=== PATIENT | female | born 1965 | race Caucasian/White ===

== ENCOUNTER 2018-05-17 15:41 | Inpatient (IN) ==
[2018-05-17] MEDS ORDERED: MethylPREDNISolone Sod Succinate Inj 125 MG/2 ML Vial IV.PUSH ONE (15:54)
[2018-05-17 16:11] LABS: Baso # (Auto) 0.1 th/mm3 (0.0-0.2); Baso % (Auto) 0.9 % (0.0-2.0); Eos % (Auto) 9.2 % (0.0-4.0); Hematocrit 45.1 % (35.0-46.0); Hemoglobin 14.9 gm/dL (11.6-15.3); Lymph # (Auto) 2.2 th/mm3 (1.0-4.8); Lymph % (Auto) 20.1 % (9.0-44.0); Mean Corpuscular Hemoglobin 29.2 pg (27.0-34.0); Mean Corpuscular Volume 88.2 fL (80.0-100.0); Mean Platelet Volume 8.9 fL (7.0-11.0); Mono # (Auto) 0.5 th/mm3 (0.0-0.9); Mono % (Auto) 4.9 % (0.0-8.0); Neut # (Auto) 7.2 th/mm3 (1.8-7.7); Neut % (Auto) 64.9 % (16.0-70.0); Platelet Count 269 th/mm3 (150-450); Red Blood Count 5.11 mil/mm3 (4.00-5.30); Red Cell Distribution Width 12.6 % (11.6-17.2)
[2018-05-17 16:20] LABS: Chloride 107 meq/L (98-107); Potassium 3.6 meq/L (3.5-5.1); Sodium 139 meq/L (136-145)
[2018-05-17 16:23] LABS: Calcium 8.2 mg/dL (8.5-10.1)
[2018-05-17 16:24] LABS: Albumin 3.8 g/dL (3.4-5.0); Anion Gap 8 meq/L (5-15); Blood Urea Nitrogen 11 mg/dL (7-18); Glucose,Random 100 mg/dL (74-106)
--- NOTE | 2018-05-17 16:24 | ED ---
HPI General Chief Complaint: Respiratory Symptoms Stated Complaint: SOB Time Seen by Provider: 05/17/18 15:54 History of Present Illness HPI Narrative: Patient is a 52-year-old female with history of COPD, quit smoking 4 years ago. She presented to emergency room for severe dyspnea, wheezing. She has dry cough, denies any chest pain. She was taking Ventolin at home with no effect. Related Data Home Medications Medication Instructions Recorded Confirmed albuterol sulfate [Ventolin HFA] 2 puff INHALATION Q4-6H PRN 05/17/18 05/17/18 alprazolam [Xanax] 0.5 mg PO BID 05/17/18 05/17/18 aspirin 81 mg PO DAILY 05/17/18 05/17/18 diclofenac sodium 05/17/18 enalapril maleate 10 mg PO BID 05/17/18 05/17/18 escitalopram oxalate [Lexapro] 20 mg PO DAILY 05/17/18 05/17/18 gabapentin 05/17/18 metoprolol succinate 50 mg PO DAILY 05/17/18 05/17/18 Allergies Allergy/AdvReac Type Severity Reaction Status Date / Time No Known Allergies Allergy Mild Uncoded 02/10/15 23:02 Review of Systems ROS: all other systems reviewed are negative Respiratory Reports dyspnea PMFSH Social History Social History Substance History: No History of Abuse Second Hand Smoke Exposure: Yes Smoking Status: Former smoker Tobacco Type: Cigarettes How Often Do You Have a Drink Containing Alcohol: 2 to 4 times a month Recent Travel in [facility] within the Last 8 Weeks: No Recent Out of Country Travel within the Last 8 Weeks: No Exam Narrative Exam Narrative: GENERAL: [-] SKIN: Focused skin assessment warm/dry. HEAD: Atraumatic. Normocephalic. EYES: Pupils equal and round. No scleral icterus. No injection or drainage. ENT: No nasal bleeding or discharge. Mucous membranes pink and moist. NECK: Trachea midline. No JVD. CARDIOVASCULAR: Regular rate and rhythm. No murmur appreciated. RESPIRATORY: Significant bilateral wheezing. GASTROINTESTINAL: Abdomen soft, non-tender, nondistended. Hepatic and splenic margins not palpable. MUSCULOSKELETAL: No obvious deformities. No clubbing. No cyanosis. No edema. NEUROLOGICAL: Awake and alert. No obvious cranial nerve deficits. Motor grossly within normal limits. Normal speech. PSYCHIATRIC: Appropriate mood and affect; insight and judgment normal. Course Initial Documented Vital Signs Temperature 98.4 F 05/17/18 15:56 Pulse Rate 90 05/17/18 15:56 Respiratory Rate 24 05/17/18 15:56 Blood Pressure 127/92 H 05/17/18 15:56 Pulse Oximetry 81 L 05/17/18 15:56 Last Documented Vital Signs Temperature 95.5 F L 05/18/18 04:00 Pulse Rate 125 H 05/18/18 07:24 Respiratory Rate 22 05/18/18 07:24 Blood Pressure 140/97 H 05/18/18 04:00 Pulse Oximetry 94 L 05/18/18 07:24 Medical Decision Making MDM Narrative Medical decision making narrative: Patient has asthma/COPD exacerbation, treated in the emergency room. Reevaluation is pending. 1750: After 4 treatments patient still has wheezing, saturation is 92% on 2 L of oxygen. Patient needs further evaluation and treatment, case discussed with Dr. Ruiz who agreed with admission to observation. Medical Screen Exam Complete: Yes Emergency Medical Condition: Yes Lab Data Result diagrams: 05/17/18 16:00 05/17/18 16:00 Lab Results 05/17/18 05/17/18 Range/Units 16:00 16:00 CBC w Diff Auto diff final WBC 11.0 (4.0-11.0) th/mm3 RBC 5.11 (4.00-5.30) mil/mm3 Hgb 14.9 (11.6-15.3) gm/dL Hct 45.1 (35.0-46.0) % MCV 88.2 (80.0-100.0) fL MCH 29.2 (27.0-34.0) pg MCHC 33.0 (32.0-36.0) % RDW 12.6 (11.6-17.2) % Plt Count 269 (150-450) th/mm3 MPV 8.9 (7.0-11.0) fL Neut % (Auto) 64.9 (16.0-70.0) % Lymph % (Auto) 20.1 (9.0-44.0) % [place] % (Auto) 4.9 (0.0-8.0) % Eos % (Auto) 9.2 H (0.0-4.0) % Baso % (Auto) 0.9 (0.0-2.0) % Neut # (Auto) 7.2 (1.8-7.7) th/mm3 Lymph # (Auto) 2.2 (1.0-4.8) th/mm3 [place] # (Auto) 0.5 (0.0-0.9) th/mm3 Eos # (Auto) 1.0 H (0.0-0.4) th/mm3 Baso # (Auto) 0.1 (0.0-0.2) th/mm3 WBC Differential . Differential Comment . Sodium 139 (136-145) meq/L Potassium 3.6 (3.5-5.1) meq/L Chloride 107 (98-107) meq/L Carbon Dioxide 24.0 (21.0-32.0) meq/L Anion Gap 8 (5-15) meq/L BUN 11 (7-18) mg/dL Creatinine 1.00 (0.50-1.00) mg/dL Estimated GFR 58 L (>89) mL/min Random Glucose 100 (74-106) mg/dL Calcium 8.2 L (8.5-10.1) mg/dL Total Bilirubin 0.3 (0.2-1.0) mg/dL AST 21 (15-37) U/L ALT 50 (10-53) U/L Alkaline Phosphatase 56 (45-117) U/L Total Protein 7.5 (6.4-8.2) g/dL Albumin 3.8 (3.4-5.0) g/dL Imaging Data Radiologist's impression: Chest X-Ray 05/17/18 15:54 CONCLUSION: No acute cardiopulmonary disease. Discharge Plan Discharge Disposition Patient Disposition: 30 Still Patient Discharge Condition Condition: Fair Discharge Details Diagnosis: Asthma exacerbation in COPD Physicians Team ED Provider: Live Coelho Primary Care Provider: UNKNOWN, Attending Provider: Anisha Broussard Status ED Status: Left Department Discharge Information Discharge Date/Time: 05/17/18 20:36
[2018-05-17 16:27] LABS: Alanine Aminotransferase 50 U/L (10-53); Aspartate Aminotransferase 21 U/L (15-37); Glomerular Filtration Rate 58 mL/min (>89)
[2018-05-17 16:28] LABS: Total Protein 7.5 g/dL (6.4-8.2)
[2018-05-17 16:30] LABS: Alkaline Phosphatase 56 U/L (45-117)
--- NOTE | 2018-05-17 16:32 | XR ---
EXAM DATE: 05/17/2018 4:26 PM EDT AGE/SEX: 52 years / Female INDICATIONS: Shortness of breath. CLINICAL DATA: This is the patient's initial encounter. Patient reports that signs and symptoms have been present for 1 day and indicates a pain score of 0/10. MEDICAL/SURGICAL HISTORY: None. None. COMPARISON: No prior exams available for comparison. FINDINGS: A single AP view of the chest demonstrates the lungs to be symmetrically aerated without evidence of mass, infiltrate or effusion. The cardiomediastinal contours are unremarkable. Osseous structures a re intact. CONCLUSION: No acute cardiopulmonary disease. Electronically signed by: Henry Hamlin MD 05/17/2018 4:30 PM EDT
[2018-05-17] MEDS ORDERED: Bisacodyl 10 MG Supp RECTAL PRN (17:41)
--- NOTE | 2018-05-17 18:25 | P.HPIM ---
History of Present Illness Primary Care Physician: UNKNOWN History of Present Illness: 52 year old female with history of tobacco abuse (quit 6 years ago), HTN, OA, anxiety, neuropathy, and possible COPD presenting with shortness of breath x 2 days. The patient had recently been prescribed an albuterol inhaler about a month ago by her PCP and was going to reevaluate her symptoms after a month. She has never been formally diagnosed with COPD or has had PFTs. She states since yesterday she has had shortness of breath, wheezing, and a mildly productive cough. She denies fever, chills, abdominal pain, nausea, vomiting, myalgias, or sick contacts. She reports frequent use of her Ventolin with minimal improvement in her symptoms. She does not have active or history of cancer. She states she is not sedentary and did recently fly on an airplane but the flight was only two hours. She denies any lower extremity edema. She has had no recent surgeries or prolonged immobilized state. PMH: COPD, h/o tobacco abuse Surgical hx: tubal ligation Family hx: heart disease in mother Social hx: works as a caregiver, quit smoking ~6 yrs ago, prior smoked ~1/2- 1PPD x 20 yrs, denies EtOH/recreational drug use Inpatient Certification: I certify that the inpatient services were ordered in accordance with Medicare regulations governing the order. This includes certification that hospital inpatient services are reasonable and necessary and in the case of services not specified as inpatient-only under 42 CFR 419.22(n), that they are appropriately provided as inpatient services in accordance to with the 2-midnight benchmark under 43 CFR 412.3(e) Estimated Total Length of Stay (Days): 2 Plans for Post Hospital Care: Home Review of Systems All other systems reviewed negative except as stated in HPI PMFSH - History History Provided By: Patient - Medical History Medical History: Medical History (Last Reviewed 05/17/18 @ 21:04 by Anisha Broussard MD) Anxiety Arthritis COPD (chronic obstructive pulmonary disease) Depression HTN (hypertension) Neuropathy - Tobacco History Smoking Status: Former smoker - Alcohol History How Often Do You Have a Drink Containing Alcohol: 2 to 4 times a month - Substance Use History Substance History: No History of Abuse - Travel History Recent Travel in the [place] Within the Last 8 Weeks: No Recent Travel Out of the Country Within the Last 8 Weeks: No - Immunization History Tetanus Immunization: Unsure Medications and Allergies Active Medications: Active Medications Acetaminophen (Tylenol) 650 mg PO Q4H PRN PRN Reason: Temp > 100.4 Al Hydroxide/Mg Hydroxide (Milk Of Magnesia Liq) 30 ml PO Q12H PRN PRN Reason: Mild Constipation Albuterol (Duoneb Neb (Danie)) 1 ampul NEB Q4HR NEB DANIE Albuterol (Albuterol Neb (Prn)) 2.5 mg NEB Q2HR NEB PRN PRN Reason: SHORTNESS OF BREATH/WHEEZING Azithromycin (Zithromax) 500 mg PO DAILY [facility] Stop: 05/20/18 09:01 Bisacodyl (Dulcolax Supp) 10 mg RECTAL DAILY PRN PRN Reason: SEVERE CONSITIPATION Enoxaparin Sodium (Lovenox Inj) 40 mg SQ Q24H [facility] Lactulose (Lactulose Liq) 30 ml PO DAILY PRN PRN Reason: SEVERE CONSITIPATION Methylprednisolone Sodium Succinate (Solumedrol Inj) 60 mg IV.PUSH Q6H [facility] Ondansetron HCl (Zofran Inj) 4 mg IV.PUSH Q6H PRN PRN Reason: NAUSEA OR VOMITING Senna/Docusate Sodium (Chery-Colace) 1 tab PO BID [facility] Sennosides (Senokot) 17.2 mg PO Q12H PRN PRN Reason: Moderate Constipation Sodium Chloride (Ns Flush) 2 ml IV.FLUSH BID [facility] Sodium Chloride (Ns Flush) 2 ml IV.FLUSH PRN PRN PRN Reason: FLUSH AFTER USING IV ACCESS Allergies Allergy/AdvReac Type Severity Reaction Status Date / Time No Known Allergies Allergy Mild Uncoded 02/10/15 23:02 Home Medications Medication Instructions Recorded Confirmed Type albuterol sulfate [Ventolin HFA] 2 puff INHALATION Q4-6H PRN 05/17/18 05/17/18 History alprazolam [Xanax] 0.5 mg PO BID 05/17/18 05/17/18 History aspirin 81 mg PO DAILY 05/17/18 05/17/18 History diclofenac sodium 05/17/18 History enalapril maleate 10 mg PO BID 05/17/18 05/17/18 History escitalopram oxalate [Lexapro] 20 mg PO DAILY 05/17/18 05/17/18 History gabapentin 05/17/18 History metoprolol succinate 50 mg PO DAILY 05/17/18 05/17/18 History Exam Vital signs: Vital Signs 05/17/18 15:56 05/17/18 16:06 05/17/18 16:16 Temperature 98.4 F Pulse Rate 90 90 Respiratory Rate 24 20 Blood Pressure 127/92 H Pulse Oximetry 81 L 97 05/17/18 16:36 05/17/18 16:44 05/17/18 16:45 Temperature Pulse Rate 97 H 94 H Respiratory Rate 20 18 Blood Pressure 140/87 Pulse Oximetry 91 L 91 L 05/17/18 17:36 05/17/18 17:46 05/17/18 17:56 Temperature Pulse Rate 106 H 10 L 100 H Respiratory Rate 18 18 18 Blood Pressure 147/89 H Pulse Oximetry 90 L 93 L Intake & Output 05/16/18 05/17/18 05/17/18 18:59 06:59 18:59 Weight 99.79 kg Narrative: GENERAL: WN, WD female sitting up in bed in [facility]. SKIN: Warm and dry. HEENT: AT/NC. Pupils equal and round. Nasal cannula in place. MMM. NECK: Supple no tender LAD or JVD. HEART: Tachycardic with no appreciable murmurs. LUNGS: Appear short of breath but is able to speak in complete sentences. Diffuse wheezing and prolonged expiratory phase. No appreciable crackles. ABDOMEN: +BS, soft, NT, ND. EXTREMITIES: No LE edema. Calves supple and nontender. 2+ pedal pulses. NEURO: Awake and alert. Nonfocal. Results - Labs CBC & Chem 7: 05/17/18 16:00 05/17/18 16:00 Labs: Short CBC 05/17/18 Range/Units 16:00 WBC 11.0 (4.0-11.0) th/mm3 Hgb 14.9 (11.6-15.3) gm/dL Hct 45.1 (35.0-46.0) % Plt Count 269 (150-450) th/mm3 BMP 05/17/18 16:00 Sodium 139 Potassium 3.6 Chloride 107 Carbon Dioxide 24.0 BUN 11 Creatinine 1.00 Calcium 8.2 L Liver Function 05/17/18 Range/Units 16:00 Total Bilirubin 0.3 (0.2-1.0) mg/dL AST 21 (15-37) U/L ALT 50 (10-53) U/L Alkaline Phosphatase 56 (45-117) U/L Albumin 3.8 (3.4-5.0) g/dL - Imaging Impressions Chest X-Ray 05/17/18 15:54 CONCLUSION: No acute cardiopulmonary disease. Caprini VTE Risk Assessment Caprini VTE Risk Assessment: Moderate/High Risk (score >= 2) Caprini Risk Assessment Model: Point Value = 1 Point Value = 2 Point Value = 3 Point Value = 5 Age 41-60 Minor surgery BMI > 25 kg/m2 Swollen legs Varicose veins or History of unexplained or recurrent spontaneous Oral contraceptives or hormone replacement Sepsis (< 1 month) Serious lung disease, including pneumonia (< 1 month) Abnormal pulmonary function Acute myocardial infarction Congestive heart failure (< 1 month) History of inflammatory bowel disease Medical patient at bed rest Age 61-74 Arthroscopic surgery Major open surgery (> 45 min) Laparoscopic surgery (> 45 min) Malignancy Confined to bed (> 72 hours) Immobilizing plaster cast Central venous access Age >= 75 History of VTE Family history of VTE Factor V Leiden Prothrombin [id number] Lupus anticoagulant Anticardiolipin antibodies Elevated serum homocysteine Heparin-induced thrombocytopenia Other congenital or acquired thrombophilia Stroke (< 1 month) Elective arthroplasty Hip, pelvis, or leg fracture Acute spinal cord injury (< 1 month) Prophylaxis Regimen: Total Risk Factor Score Risk Level Prophylaxis Regimen 0-1 Low Early ambulation 2 Moderate Order ONE of the following: *Sequential Compression Device (SCD) *Heparin 5000 units SQ BID 3-4 Higher Order ONE of the following medications: *Heparin 5000 units SQ TID *Enoxaparin/Lovenox 40 mg SQ daily (WT < 150 kg, CrCl > 30 mL/min) *Enoxaparin/Lovenox 30 mg SQ daily (WT < 150 kg, CrCl > 10-29 mL/min) *Enoxaparin/Lovenox 30 mg SQ BID (WT < 150 kg, CrCl > 30 mL/min) AND/OR *Sequential Compression Device (SCD) 5 or more Highest Order ONE of the following medications: *Heparin 5000 units SQ TID (Preferred with Epidurals) *Enoxaparin/Lovenox 40 mg SQ daily (WT < 150 kg, CrCl > 30 mL/min) *Enoxaparin/Lovenox 30 mg SQ daily (WT < 150 kg, CrCl > 10-29 mL/min) *Enoxaparin/Lovenox 30 mg SQ BID (WT < 150 kg, CrCl > 30 mL/min) AND *Sequential Compression Device (SCD) Assessment and Plan - Plan 52-year-old female with history of tobacco abuse, HTN, anxiety, neuropathy, and possible COPD presenting with shortness of breath, wheezing, and mildly productive cough. 1. COPD exacerbation CXR shows mildly hyperinflated lungs and slightly flattened diaphragms, however , no acute cardiopulmonary abnormalities or signs of consolidation (personally reviewed by myself) No leukocytosis or fever Wells score 1.5 (for tachycardia) -- low risk for PE Patient hypoxic with O2 sat 81% on room air on initial presentation improved up to 94% on 4L Symptoms persisted in the ED despite several treatments of nebulizers Will manage with IV Solu-Medrol Q6, DuoNeb Q4, albuterol nebs PRN, and azithromycin Wean steroids as patient improves Supplemental O2 to maintain sats greater than 92% Patient would benefit from outpatient PFTs Check influenza antigens 2. HTN Resume home enalapril and metoprolol Monitor BPs and adjust as needed 3. Neuropathy Resume home gabapentin once dose confirmed 4. Anxiety Resume home Lexapro and Xanax DVT prophylaxis: Lovenox Code Status: FULL Discussed Condition With: Patient
[2018-05-17] MEDS: Enoxaparin Inj 40 MG/0.4 ML Syringe SQ SCH (21:22)
[2018-05-17] MEDS: MethylPREDNISolone Sod Succinate Inj 40 MG/ML Vial IV.PUSH SCH (21:22)
[2018-05-17] MEDS: Senna/Docusate Sodium 8.6/50 MG Tablet PO SCH (21:23)
[2018-05-18] MEDS: Acetaminophen 325 MG Tablet PO PRN ×4 (00:01→21:39)
[2018-05-18] MEDS: MethylPREDNISolone Sod Succinate Inj 40 MG/ML Vial IV.PUSH SCH ×4 (04:45→21:38)
[2018-05-18] MEDS ORDERED: ALPRAZolam 0.25 MG Tablet PO ONE (04:49)
--- NOTE | 2018-05-18 09:08 | CT ---
EXAM DATE: 05/18/2018 9:04 AM EDT AGE/SEX: 52 years / Female INDICATIONS: Short of breath. CLINICAL DATA: This is the patient's initial encounter. Patient reports that signs and symptoms have been present for 2 days and indicates a pain score of 0/10. MEDICAL/SURGICAL HISTORY: Hypertension. Tubal ligation. RADIATION DOSE: 20.61 CTDI (mGy) ; Patient body habitus COMPARISON: No prior exams available for comparison. TECHNIQUE: Volumetric scanning was performed using a multi-row detector CT scanner during bolus infu meaghan of 100 ml Omnipaque 350 (iohexol) nonionic water-soluble contrast as a single exam dose. The da ta was post processed with a variety of visualization algorithms including full volume maximum intens ity projection and sliding thin slab reformation. Using automated exposure control and adjustment of the mA and/or kV according to patient size, radiation dose was kept as low as reasonably achievable t o obtain optimal diagnostic quality images. DICOM format image data is available electronically for review and comparison. FINDINGS: Pulmonary Arteries: No filling defects are seen in the pulmonary arteries out to the subsegmental ve ssels. The left and right pulmonary arteries are normal in diameter. Lung: No infiltrates seen. Minimal atelectasis left lung base Effusion: None. Mediastinum: No evidence of mediastinal or hilar adenopathy. Other: The axilla is unremarkable. CONCLUSION: 1. This study is negative for pulmonary embolism. Electronically signed by: Dionisio Shrestha MD 05/18/2018 9:07 AM EDT
[2018-05-18] MEDS: ALPRAZolam 0.5 MG Tablet PO SCH ×2 (09:19→20:45)
[2018-05-18] MEDS: Senna/Docusate Sodium 8.6/50 MG Tablet PO SCH ×2 (09:19→20:47)
[2018-05-18] MEDS: Azithromycin 250 MG Tablet PO SCH (09:19)
[2018-05-18 09:51] LABS: ABG PCO2 27 mmHg (38-42); ABG PO2 70 mmHg (61-120)
--- NOTE | 2018-05-18 14:35 | P.PNIM ---
Subjective Interval history: Late entry note, patient seen around 8:30AM for f/u COPD exacerbation. Now requiring up to 6L to maintain sats and feels more short of breath. HR up to 120s. Stat CTA done negative for PE. No consolidation seen either. Upon reevaluate, she states once she started receiving the PRN albuterol and given her home dose of Xanax she is feeling better. Still with dyspnea upon minimal exertion but breathing better at rest and more comfortable. Endorses some chest pain with deep inspiration and with coughing. She reports she was able to produce phlegm of thick green sputum earlier which seemed to help clear her chest congestion. She denies nausea, vomiting, fever, chills, or abdominal pain. Physical Exam Vital signs: Vital Signs 05/17/18 15:56 05/17/18 16:06 05/17/18 16:16 Temperature 98.4 F Pulse Rate 90 90 Respiratory Rate 24 20 Blood Pressure 127/92 H Pulse Oximetry 81 L 97 05/17/18 16:36 05/17/18 16:44 05/17/18 16:45 Temperature Pulse Rate 97 H 94 H Respiratory Rate 20 18 Blood Pressure 140/87 Pulse Oximetry 91 L 91 L 05/17/18 17:36 05/17/18 17:46 05/17/18 17:56 Temperature Pulse Rate 106 H 10 L 100 H Respiratory Rate 18 18 18 Blood Pressure 147/89 H Pulse Oximetry 90 L 93 L 05/17/18 19:37 05/17/18 20:25 05/17/18 22:23 Temperature 96.3 F L Pulse Rate 106 H 104 H 114 H Respiratory Rate 17 18 20 Blood Pressure 129/83 138/87 Pulse Oximetry 94 L 90 L 90 L 05/17/18 23:47 05/18/18 00:00 05/18/18 03:40 Temperature 96.5 F L Pulse Rate 120 H 125 H 119 H Respiratory Rate 20 18 20 Blood Pressure 135/77 Pulse Oximetry 92 L 93 L 05/18/18 04:00 05/18/18 07:24 05/18/18 09:45 Temperature 95.5 F L Pulse Rate 118 H 125 H 126 H Respiratory Rate 22 22 Blood Pressure 140/97 H Pulse Oximetry 93 L 94 L 05/18/18 09:51 05/18/18 11:47 05/18/18 12:00 Temperature 96.3 F L Pulse Rate 128 H 112 H 112 H Respiratory Rate 20 Blood Pressure 117/68 Pulse Oximetry 93 L Intake & Output 05/17/18 05/18/18 05/18/18 18:59 06:59 18:59 Weight 99.79 kg 96.4 kg Other: Weight On Admission 96.4 kg Narrative: GENERAL: WN, WD female sitting up in bed in [place]. SKIN: Warm and dry. HEENT: AT/NC. Pupils equal and round. Nasal cannula in place. MMM. NECK: Supple no tender LAD or JVD. HEART: Tachycardic with no appreciable murmurs. LUNGS: Appear short of breath but is able to speak in complete sentences. Diffuse wheezing and prolonged expiratory phase. No appreciable crackles. ABDOMEN: +BS, soft, NT, ND. EXTREMITIES: No LE edema. Calves supple and nontender. 2+ pedal pulses. NEURO: Awake and alert. Results - Labs CBC & Chem 7: 05/17/18 16:00 05/17/18 16:00 Laboratory Results - last 24 hr 05/17/18 05/17/18 05/18/18 16:00 16:00 06:00 CBC w Diff Auto diff final WBC 11.0 RBC 5.11 Hgb 14.9 Hct 45.1 MCV 88.2 MCH 29.2 MCHC 33.0 RDW 12.6 Plt Count 269 MPV 8.9 Neut % (Auto) 64.9 Lymph % (Auto) 20.1 [place] % (Auto) 4.9 Eos % (Auto) 9.2 H Baso % (Auto) 0.9 Neut # (Auto) 7.2 Lymph # (Auto) 2.2 [place] # (Auto) 0.5 Eos # (Auto) 1.0 H Baso # (Auto) 0.1 WBC Differential . Differential Comment . Puncture Site Patient Temperature O2 Saturation ABG pH ABG pCO2 ABG pO2 ABG HCO3 ABG O2 Content ABG Base Excess ABG Methemoglobin Richard Test Hemoglobin Carboxyhemoglobin O2 Delivery Device Liter Flow Critical Value Sodium 139 Potassium 3.6 Chloride 107 Carbon Dioxide 24.0 Anion Gap 8 BUN 11 Creatinine 1.00 Estimated GFR 58 L Random Glucose 100 Calcium 8.2 L Total Bilirubin 0.3 AST 21 ALT 50 Alkaline Phosphatase 56 Total Protein 7.5 Albumin 3.8 Influenza Virus Source Cancelled Influenza A (H1) PCR Cancelled Influenza Type A Ag Cancelled 05/18/18 09:40 CBC w Diff WBC RBC Hgb Hct MCV MCH MCHC RDW Plt Count MPV Neut % (Auto) Lymph % (Auto) [place] % (Auto) Eos % (Auto) Baso % (Auto) Neut # (Auto) Lymph # (Auto) [place] # (Auto) Eos # (Auto) Baso # (Auto) WBC Differential Differential Comment Puncture Site Left radial Patient Temperature 98.6 O2 Saturation 92 ABG pH 7.33 L ABG pCO2 27 L ABG pO2 70 ABG HCO3 14 L* ABG O2 Content 19.5 ABG Base Excess -11.0 L ABG Methemoglobin 1.4 Richard Test Present Hemoglobin 15.1 Carboxyhemoglobin 0.9 O2 Delivery Device Nasal cannula Liter Flow 6.00 Critical Value Yes Sodium Potassium Chloride Carbon Dioxide Anion Gap BUN Creatinine Estimated GFR Random Glucose Calcium Total Bilirubin AST ALT Alkaline Phosphatase Total Protein Albumin Influenza Virus Source Influenza A (H1) PCR Influenza Type A Ag - Imaging Impressions Chest X-Ray 05/17/18 15:54 CONCLUSION: No acute cardiopulmonary disease. Chest CTA 05/18/18 00:00 CONCLUSION: 1. This study is negative for pulmonary embolism. Assessment and Plan - Assessment (1) COPD exacerbation Code(s): J44.1 - Chronic obstructive pulmonary disease with (acute) exacerbation Status: Acute - Plan 52-year-old female with history of tobacco abuse, HTN, anxiety, neuropathy, and possible COPD presenting with shortness of breath, wheezing, and mildly productive cough. 1. COPD exacerbation CXR shows mildly hyperinflated lungs and slightly flattened diaphragms, however , no acute cardiopulmonary abnormalities or signs of consolidation (personally reviewed by myself) No leukocytosis or fever Wells score 1.5 (for tachycardia) -- low risk for PE however given increased need for O2 overnight and tachycardia obtained a stat CTA this morning which was negative for PE Patient hypoxic with O2 sat 81% on room air on initial presentation Symptoms persisted in the ED despite several treatments of nebulizers Continue IV Solu-Medrol Q6, DuoNeb Q4, albuterol nebs PRN, and azithromycin Supplemental O2 to maintain sats greater than 92% - now requiring up to 6L but symptomatically improved after additional albuterol nebs and Xanax Patient would benefit from outpatient PFTs Check influenza antigens If no improvement consider pulm consult 2. HTN Stable Resume home enalapril and metoprolol Monitor BPs and adjust as needed 3. Neuropathy Resume home gabapentin once dose confirmed 4. Anxiety Resume home Lexapro and Xanax DVT prophylaxis: Lovenox Discharge Planning: Pending clinical improvement
--- NOTE | 2018-05-18 14:52 | ECG ---
Date Performed: 05/17/2018 Time Performed: 15:49:04 PTAGE: 52 years EKG: Sinus rhythm POSSIBLE RIGHT VENTRICULAR CONDUCTION DELAY NONSPECIFIC T-WAVE ABNORMALITY Since the previous tracin g, no significant change noted BORDERLINE ECG PREVIOUS TRACING : 11/29/2005 14.45 DOCTOR: Terrell Amador Interpretating Date/Time 05/18/2018 14:48:46
--- NOTE | 2018-05-18 14:52 | ECG ---
Date Performed: 05/18/2018 Time Performed: 10:08:38 PTAGE: 52 years EKG: SINUS TACHYCARDIA NONSPECIFIC ST & T-WAVE ABNORMALITY Since the previous tracing, no signif icant change noted ABNORMAL RHYTHM ECG PREVIOUS TRACING : 05/17/2018 15.49 DOCTOR: Terrell Amador Interpretating Date/Time 05/18/2018 14:48:54
--- NOTE | 2018-05-18 17:14 | P.DIET ---
Nutritional Evaluation Type of nutrition evaluation: initial Nutrition screening: Weight Loss > 10 lbs Subjective Subjective Comments: Pt reports good appetite. 100% po for meals at time of this entry. Objective - Diagnosis COPD Exacerbation - Objective % IBW: 157 Body Weight Used for Calculations: IBW (61.4 kg) Energy Needs - Lower Range (kCal/kg): 28 Energy Needs - Upper Range (kCal/kg): 33 Lower Limit kCal/kg (kCals): 1,719 Upper Limit kCal/kg (kCals): 2,026 Lower Limit Protein Factor (Grams per Kg): 1.3 Upper Limit Protein Factor (Grams per Kg): 1.6 Lower Protein Needs (Protein): 80 Upper Protein Needs (Protein): 98 Dietitian Reviewed in Medical Record: Current diet, Curent medications, Intake & Output, Labs, Medical history Diet Order: Cardiac Oral Diet Intake Amount: Excellent 90%+ Objective Comments: PMH includes: Anxiety, Arthritis, COPD, Depression, HTN, Neuropathy Assessment Assessment: Nutrition Assessment for reported recent Wt Loss. Pt w/100% po intake for meals. here. Agree w/Cardiac diet. Labs reviewed. Please Consult RD if Needed. Recommendations: 1. Agree w/Cardiac diet 2. Please Consult RD if Needed
[2018-05-18] MEDS: Enoxaparin Inj 40 MG/0.4 ML Syringe SQ SCH (20:44)
[2018-05-18] MEDS: guaiFENesin 600 MG ER Tablet PO SCH (20:45)
--- NOTE | 2018-05-18 21:09 | P.PN ---
Subjective Interval history: NOT SEEN Physical Exam Vital signs: Vital Signs 05/17/18 22:23 05/17/18 23:47 05/18/18 00:00 Temperature 96.5 F L Pulse Rate 114 H 120 H 125 H Respiratory Rate 20 20 18 Blood Pressure 135/77 Pulse Oximetry 90 L 92 L 93 L 05/18/18 03:40 05/18/18 04:00 05/18/18 07:24 Temperature 95.5 F L Pulse Rate 119 H 118 H 125 H Respiratory Rate 20 22 Blood Pressure 140/97 H Pulse Oximetry 93 L 94 L 05/18/18 08:00 05/18/18 09:45 05/18/18 09:51 Temperature Pulse Rate 116 H 126 H 128 H Respiratory Rate 22 Blood Pressure Pulse Oximetry 05/18/18 11:47 05/18/18 12:00 05/18/18 15:04 Temperature 96.3 F L Pulse Rate 112 H 112 H 102 H Respiratory Rate 20 18 Blood Pressure 117/68 Pulse Oximetry 93 L 05/18/18 15:54 05/18/18 17:41 05/18/18 19:13 Temperature 96.9 F L Pulse Rate 112 H 100 H Respiratory Rate 18 24 20 Blood Pressure 126/97 H Pulse Oximetry 92 L 93 L 05/18/18 20:00 Temperature 95.4 F L Pulse Rate 103 H Respiratory Rate 18 Blood Pressure 120/84 Pulse Oximetry 93 L Intake & Output 05/18/18 05/18/18 05/19/18 06:59 18:59 06:59 Intake Total 1100 / 1100 Balance 1100 / 1100 Weight 96.4 kg Intake: Oral 1100 / 1100 Other: # Voids 3 # Bowel Movements 1 Weight On Admission 96.4 kg Narrative: GENERAL: WN, WD female sitting up in bed in [facility]. SKIN: Warm and dry. HEART: Tachycardic with no appreciable murmurs. LUNGS: Appear short of breath but is able to speak in complete sentences. Diffuse wheezing and prolonged expiratory phase. No appreciable crackles. ABDOMEN: +BS, soft, NT, ND. EXTREMITIES: No LE edema. Calves supple and nontender. 2+ pedal pulses. NEURO: Awake and alert. Results - Labs CBC & Chem 7: 05/17/18 16:00 05/17/18 16:00 Laboratory Results - last 24 hr 05/18/18 05/18/18 06:00 09:40 Puncture Site Left radial Patient Temperature 98.6 O2 Saturation 92 ABG pH 7.33 L ABG pCO2 27 L ABG pO2 70 ABG HCO3 14 L* ABG O2 Content 19.5 ABG Base Excess -11.0 L ABG Methemoglobin 1.4 Richard Test Present Hemoglobin 15.1 Carboxyhemoglobin 0.9 O2 Delivery Device Nasal cannula Liter Flow 6.00 Critical Value Yes Influenza Virus Source Cancelled Influenza A (H1) PCR Cancelled Influenza Type A Ag Cancelled - Imaging Impressions Chest CTA 05/18/18 00:00 CONCLUSION: 1. This study is negative for pulmonary embolism. - Procedures none Assessment and Plan - Assessment (1) COPD exacerbation Code(s): J44.1 - Chronic obstructive pulmonary disease with (acute) exacerbation Status: Acute - Plan 52-year-old female with history of tobacco abuse, HTN, anxiety, neuropathy, and possible COPD presenting with shortness of breath, wheezing, and mildly productive cough. 1. COPD exacerbation CXR shows mildly hyperinflated lungs and slightly flattened diaphragms, however , no acute cardiopulmonary abnormalities or signs of consolidation (personally reviewed by myself) No leukocytosis or fever CTA negative for PE Patient hypoxic with O2 sat 81% on room air on initial presentation Symptoms persisted in the ED despite several treatments of nebulizers Continue IV Solu-Medrol Q6, DuoNeb Q4, albuterol nebs PRN, and azithromycin Supplemental O2 to maintain sats greater than 92% - now requiring up to 6L but symptomatically improved after additional albuterol nebs and Xanax Patient would benefit from outpatient PFTs Check influenza antigens If no improvement consider pulm consult 2. HTN Stable Resume home enalapril and metoprolol Monitor BPs and adjust as needed 3. Neuropathy Resume home gabapentin once dose confirmed 4. Anxiety Resume home Lexapro and Xanax DVT prophylaxis: Lovenox
[2018-05-19] MEDS: MethylPREDNISolone Sod Succinate Inj 40 MG/ML Vial IV.PUSH SCH ×3 (05:30→17:57)
[2018-05-19 07:38] LABS: Baso % (Auto) 0.1 % (0.0-2.0); Hematocrit 42.2 % (35.0-46.0); Hemoglobin 14.6 gm/dL (11.6-15.3); Lymph # (Auto) 1.1 th/mm3 (1.0-4.8); Lymph % (Auto) 3.8 % (9.0-44.0); Mean Corpuscular HGB Conc 34.6 % (32.0-36.0); Mean Corpuscular Hemoglobin 30.3 pg (27.0-34.0); Mean Corpuscular Volume 87.5 fL (80.0-100.0); Mean Platelet Volume 9.4 fL (7.0-11.0); Mono # (Auto) 0.5 th/mm3 (0.0-0.9); Mono % (Auto) 1.7 % (0.0-8.0); Neut # (Auto) 26.8 th/mm3 (1.8-7.7); Neut % (Auto) 94.4 % (16.0-70.0); Platelet Count 321 th/mm3 (150-450); Red Blood Count 4.82 mil/mm3 (4.00-5.30); Red Cell Distribution Width 13.8 % (11.6-17.2); White Blood Count 28.4 th/mm3 (4.0-11.0)
[2018-05-19] MEDS: Acetaminophen 325 MG Tablet PO PRN ×3 (07:46→20:00)
[2018-05-19 07:52] LABS: Calcium 8.7 mg/dL (8.5-10.1); Carbon Dioxide 22.6 meq/L (21.0-32.0); Potassium 4.4 meq/L (3.5-5.1)
[2018-05-19] MEDS ORDERED: Dextrose 50% in Water 50 ML Vial IV.PUSH PRN (08:09)
[2018-05-19] MEDS: Gabapentin 100 MG Capsule PO SCH ×3 (09:54→17:04)
[2018-05-19] MEDS: Senna/Docusate Sodium 8.6/50 MG Tablet PO SCH ×2 (09:54→20:01)
[2018-05-19] MEDS: guaiFENesin 600 MG ER Tablet PO SCH ×2 (09:54→20:00)
[2018-05-19] MEDS: Azithromycin 250 MG Tablet PO SCH (09:55)
[2018-05-19] MEDS: ALPRAZolam 0.5 MG Tablet PO SCH ×2 (09:55→20:00)
[2018-05-19] MEDS: Insulin NovoLOG Aspart Correctional Sugar Inj SQ SCH ×3 (11:44→20:00)
--- NOTE | 2018-05-19 11:48 | P.PN ---
Subjective Interval history: Follow-up COPD. States she is feeling better still on 4 L nasal cannula. Was already dyspneic just walking in her room. Physical Exam Vital signs: Vital Signs 05/18/18 11:47 05/18/18 12:00 05/18/18 15:04 Temperature 96.3 F L Pulse Rate 112 H 112 H 102 H Respiratory Rate 20 18 Blood Pressure 117/68 Pulse Oximetry 93 L 05/18/18 15:54 05/18/18 17:41 05/18/18 19:13 Temperature 96.9 F L Pulse Rate 112 H 100 H Respiratory Rate 18 24 20 Blood Pressure 126/97 H Pulse Oximetry 92 L 93 L 05/18/18 20:00 05/18/18 23:12 05/19/18 00:00 Temperature 95.4 F L 97.0 F L Pulse Rate 94 H 92 H 96 H Respiratory Rate 18 20 18 Blood Pressure 120/84 111/73 Pulse Oximetry 93 L 95 05/19/18 03:46 05/19/18 04:00 05/19/18 07:22 Temperature 97.4 F L Pulse Rate 99 H 88 86 Respiratory Rate 20 18 18 Blood Pressure 122/74 Pulse Oximetry 96 93 L 05/19/18 08:00 05/19/18 11:14 05/19/18 11:16 Temperature 96.0 F L Pulse Rate 97 H 102 H Respiratory Rate 18 18 Blood Pressure 136/60 Pulse Oximetry 96 93 L Intake & Output 05/18/18 05/19/18 05/19/18 18:59 06:59 18:59 Intake Total 1100 / 1100 200 / 200 Balance 1100 / 1100 200 / 200 Weight 96.4 kg Intake: Oral 1100 / 1100 200 / 200 Other: # Voids 3 2 # Bowel Movements 1 Narrative: GENERAL: WN, WD female sitting up in bed in [facility]. SKIN: Warm and dry. HEART: Regular rate and rhythm with no appreciable murmurs. LUNGS: Decreased breath sounds. ABDOMEN: +BS, soft, NT, ND. EXTREMITIES: No LE edema. Calves supple and nontender. 2+ pedal pulses. NEURO: Awake and alert. Results - Labs CBC & Chem 7: 05/19/18 06:18 05/19/18 06:18 Laboratory Results - last 24 hr 05/19/18 05/19/18 05/19/18 06:18 06:18 08:25 CBC w Diff Auto diff final WBC 28.4 H RBC 4.82 Hgb 14.6 Hct 42.2 MCV 87.5 MCH 30.3 MCHC 34.6 RDW 13.8 Plt Count 321 MPV 9.4 Neut % (Auto) 94.4 H Lymph % (Auto) 3.8 L [place] % (Auto) 1.7 Eos % (Auto) 0.0 Baso % (Auto) 0.1 Neut # (Auto) 26.8 H Lymph # (Auto) 1.1 [place] # (Auto) 0.5 Eos # (Auto) 0.0 Baso # (Auto) 0.0 WBC Differential . Differential Comment . Sodium 141 Potassium 4.4 D Chloride 108 H Carbon Dioxide 22.6 Anion Gap 10 BUN 22 H Creatinine 1.00 Estimated GFR 58 L POC Glucose 158 H Random Glucose 143 H Calcium 8.7 05/19/18 11:23 CBC w Diff WBC RBC Hgb Hct MCV MCH MCHC RDW Plt Count MPV Neut % (Auto) Lymph % (Auto) [place] % (Auto) Eos % (Auto) Baso % (Auto) Neut # (Auto) Lymph # (Auto) [place] # (Auto) Eos # (Auto) Baso # (Auto) WBC Differential Differential Comment Sodium Potassium Chloride Carbon Dioxide Anion Gap BUN Creatinine Estimated GFR POC Glucose 157 H Random Glucose Calcium Microbiology 05/18/18 15:00 Sputum - Expectorated Sputum Gram Stain - Final - Imaging ITS Impressions Chest X-Ray 05/17/18 15:54 CONCLUSION: No acute cardiopulmonary disease. Chest CTA 05/18/18 00:00 CONCLUSION: 1. This study is negative for pulmonary embolism. - Procedures none Assessment and Plan - Assessment (1) COPD exacerbation Code(s): J44.1 - Chronic obstructive pulmonary disease with (acute) exacerbation Status: Acute - Plan 52-year-old female with history of tobacco abuse, HTN, anxiety, neuropathy, and possible COPD presenting with shortness of breath, wheezing, and mildly productive cough. 1. COPD exacerbation. Improving but still with significant dyspnea on exertion not stable for discharge CXR shows mildly hyperinflated lungs and slightly flattened diaphragms, however , no acute cardiopulmonary abnormalities or signs of consolidation (personally reviewed by myself) No leukocytosis or fever CTA negative for PE Patient hypoxic with O2 sat 81% on room air on initial presentation Symptoms persisted in the ED despite several treatments of nebulizers Continue DuoNeb Q4, albuterol nebs PRN, and azithromycin. Decrease steroids. Supplemental O2 to maintain sats greater than 92% -wean to keep saturation at least 92%. Patient would benefit from outpatient PFTs No symptoms suggestive of flu If no improvement consider pulm consult 2. HTN Stable Resume home enalapril and metoprolol Monitor BPs and adjust as needed 3. Neuropathy Resume home gabapentin 4. Anxiety Resume home Lexapro and Xanax 5. Leukocytosis likely secondary to steroid. Will monitor 6. Mild hyperglycemia secondary to steroids. Monitor fingersticks DVT prophylaxis: Lovenox Discharge Planning: Possible discharge in 1-2 days
[2018-05-19] MEDS: Enoxaparin Inj 40 MG/0.4 ML Syringe SQ SCH (20:01)
[2018-05-20] MEDS: MethylPREDNISolone Sod Succinate Inj 40 MG/ML Vial IV.PUSH SCH (03:27)
[2018-05-20] MEDS: Acetaminophen 325 MG Tablet PO PRN (05:08)
[2018-05-20 06:44] LABS: Baso # (Auto) 0.3 th/mm3 (0.0-0.2); Baso % (Auto) 1.5 % (0.0-2.0); Eos % (Auto) 0.1 % (0.0-4.0); Hematocrit 40.8 % (35.0-46.0); Hemoglobin 13.8 gm/dL (11.6-15.3); Lymph # (Auto) 1.1 th/mm3 (1.0-4.8); Lymph % (Auto) 5.2 % (9.0-44.0); Mean Corpuscular HGB Conc 33.7 % (32.0-36.0); Mean Corpuscular Hemoglobin 29.9 pg (27.0-34.0); Mean Corpuscular Volume 88.9 fL (80.0-100.0); Mean Platelet Volume 8.3 fL (7.0-11.0); Mono # (Auto) 0.9 th/mm3 (0.0-0.9); Mono % (Auto) 4.3 % (0.0-8.0); Neut # (Auto) 19.4 th/mm3 (1.8-7.7); Neut % (Auto) 88.9 % (16.0-70.0); Platelet Count 300 th/mm3 (150-450); Red Blood Count 4.59 mil/mm3 (4.00-5.30); Red Cell Distribution Width 13.1 % (11.6-17.2); White Blood Count 21.7 th/mm3 (4.0-11.0)
[2018-05-20 06:55] LABS: Potassium 4.5 meq/L (3.5-5.1)
[2018-05-20 06:59] LABS: Calcium 8.2 mg/dL (8.5-10.1)
[2018-05-20 07:00] LABS: Carbon Dioxide 22.9 meq/L (21.0-32.0); Magnesium 2.4 mg/dL (1.5-2.5)
[2018-05-20] MEDS: Senna/Docusate Sodium 8.6/50 MG Tablet PO SCH (08:47)
[2018-05-20] MEDS: Gabapentin 100 MG Capsule PO SCH ×2 (08:47→12:16)
[2018-05-20] MEDS: ALPRAZolam 0.5 MG Tablet PO SCH (08:48)
[2018-05-20] MEDS: guaiFENesin 600 MG ER Tablet PO SCH (08:48)
[2018-05-20] MEDS: Insulin NovoLOG Aspart Correctional Sugar Inj SQ SCH ×2 (08:49→12:08)
[2018-05-20] MEDS: Azithromycin 250 MG Tablet PO SCH (08:49)
--- NOTE | 2018-05-20 09:27 | P.PN ---
Subjective Interval history: Follow-up COPD. States she is feeling better ambulating in the hallway still on nasal cannula down to 3 L. Physical Exam Vital signs: Vital Signs 05/19/18 11:14 05/19/18 11:16 05/19/18 12:00 Temperature 96.2 F L Pulse Rate 102 H 101 H Respiratory Rate 18 18 Blood Pressure 113/61 Pulse Oximetry 93 L 95 05/19/18 16:00 05/19/18 16:26 05/19/18 19:00 Temperature 97.3 F L Pulse Rate 81 88 94 H Respiratory Rate 18 18 16 Blood Pressure 117/68 Pulse Oximetry 96 92 L 05/19/18 19:24 05/19/18 20:00 05/19/18 23:28 Temperature 96.2 F L Pulse Rate 92 H 88 Respiratory Rate 20 16 Blood Pressure 109/59 L Pulse Oximetry 94 L 93 L 05/20/18 00:00 05/20/18 03:39 05/20/18 04:00 Temperature 97 F L 96.3 F L Pulse Rate 89 86 85 Respiratory Rate 20 22 20 Blood Pressure 117/57 L 121/60 Pulse Oximetry 94 L 93 L 05/20/18 07:30 05/20/18 08:00 Temperature 97.7 F Pulse Rate 87 84 Respiratory Rate 18 19 Blood Pressure 114/83 Pulse Oximetry 93 L 94 L Intake & Output 05/19/18 05/20/18 05/20/18 18:59 06:59 18:59 Intake Total 720 / 720 240 / 240 Output Total 125 / 125 Balance 720 / 720 115 / 115 Weight 97.1 kg Intake: Oral 720 / 720 240 / 240 Output: Urine 125 / 125 Other: # Voids 2 4 Narrative: GENERAL: Well-developed, well nourished in no distress SKIN: Warm and dry. CARDIOVASCULAR: Regular rate and rhythm. RESPIRATORY: No accessory muscle use. Clear to auscultation. Breath sounds equal bilaterally. GASTROINTESTINAL: Abdomen soft, non-tender, nondistended. MUSCULOSKELETAL: Extremities without clubbing, cyanosis, or edema. No obvious deformities. NEUROLOGICAL: Awake and alert. No obvious cranial nerve deficits. Motor grossly within normal limits. Five out of 5 muscle strength in the arms and legs. Normal speech. PSYCHIATRIC: Appropriate mood and affect; insight and judgment normal. Results - Labs CBC & Chem 7: 05/20/18 06:33 05/20/18 06:33 Laboratory Results - last 24 hr 05/19/18 05/19/18 05/19/18 11:23 16:53 19:50 CBC w Diff WBC RBC Hgb Hct MCV MCH MCHC RDW Plt Count MPV Neut % (Auto) Lymph % (Auto) [place] % (Auto) Eos % (Auto) Baso % (Auto) Neut # (Auto) Lymph # (Auto) [place] # (Auto) Eos # (Auto) Baso # (Auto) WBC Differential Differential Comment Sodium Potassium Chloride Carbon Dioxide Anion Gap BUN Creatinine Estimated GFR POC Glucose 157 H 161 H 167 H Random Glucose Calcium Magnesium 05/20/18 05/20/18 05/20/18 06:33 06:33 07:48 CBC w Diff Auto diff final WBC 21.7 H RBC 4.59 Hgb 13.8 Hct 40.8 MCV 88.9 MCH 29.9 MCHC 33.7 RDW 13.1 Plt Count 300 MPV 8.3 Neut % (Auto) 88.9 H Lymph % (Auto) 5.2 L [place] % (Auto) 4.3 Eos % (Auto) 0.1 Baso % (Auto) 1.5 Neut # (Auto) 19.4 H Lymph # (Auto) 1.1 [place] # (Auto) 0.9 Eos # (Auto) 0.0 Baso # (Auto) 0.3 H WBC Differential . Differential Comment . Sodium 140 Potassium 4.5 Chloride 108 H Carbon Dioxide 22.9 Anion Gap 9 BUN 23 H Creatinine 0.90 Estimated GFR 66 L POC Glucose 132 H Random Glucose 141 H Calcium 8.2 L Magnesium 2.4 Microbiology 05/18/18 15:00 Sputum - Expectorated Sputum Gram Stain - Final 05/18/18 15:00 Sputum - Expectorated Sputum Sputum Culture - Preliminary Heavy growth normal respiratory tressa at 24 hours - Imaging ITS Impressions Chest X-Ray 05/17/18 15:54 CONCLUSION: No acute cardiopulmonary disease. Chest CTA 05/18/18 00:00 CONCLUSION: 1. This study is negative for pulmonary embolism. - Procedures none Assessment and Plan - Assessment (1) COPD exacerbation Code(s): J44.1 - Chronic obstructive pulmonary disease with (acute) exacerbation Status: Acute - Plan 52-year-old female with history of tobacco abuse, HTN, anxiety, neuropathy, and possible COPD presenting with shortness of breath, wheezing, and mildly productive cough. 1. COPD exacerbation. Improving with increased exercise tolerance CXR shows mildly hyperinflated lungs and slightly flattened diaphragms, however , no acute cardiopulmonary abnormalities or signs of consolidation (personally reviewed by myself) No leukocytosis or fever CTA negative for PE Patient hypoxic with O2 sat 81% on room air on initial presentation Symptoms persisted in the ED despite several treatments of nebulizers Continue DuoNeb Q4, albuterol nebs PRN, and azithromycin. Switch to p.o. steroids. Supplemental O2 to maintain sats greater than 92% -wean to keep saturation at least 92%. Patient would benefit from outpatient PFTs No symptoms suggestive of flu If no improvement consider pulm consult 2. HTN Stable Resume home enalapril and metoprolol Monitor BPs and adjust as needed 3. Neuropathy Resume home gabapentin 4. Anxiety Resume home Lexapro and Xanax 5. Leukocytosis likely secondary to steroid. Improving. Will monitor 6. Mild hyperglycemia secondary to steroids. Check A1c monitor fingersticks DVT prophylaxis: Lovenox Discharge Planning: Stable for discharge when home oxygen arranged
[2018-05-20] MEDS ORDERED: predniSONE 20 MG Tablet PO SCH (10:00)
[2018-05-20] MEDS ORDERED: Influenza (Quadrivalent) Vaccine 0.5 ML Syringe IM ONE (12:00)
[2018-05-20 17:19] LABS: Hemoglobin A1c 5.4 % (4.3-6.0)
== END 2018-05-20 16:46 | disposition home or self-care (01) ==
LOC: PHED 15:41 → PHEDA 18:04 → PH3 20:26
PROVIDERS: ADMIT Internal Medicine; ATTEND Internal Medicine